=== PATIENT | female | born 1950 | race African-American/Black ===

== ENCOUNTER 2017-03-22 08:39 | Emergency (ER) | payer MEDICARE, OTHER, SELFPAY ==
--- NOTE | 2017-03-22 09:23 | RAD ---
CHEST PA AND LATERAL: History: 66-year-old female with cough. FINDINGS: Increased linear and interstitial markings are noted bilaterally having more the appearance of the ch ronic change. Old granuloma calcification of the right lower lobe. Atherosclerosis of the aorta with mild ectasia. No significant cardiomegaly. No confluent pneumonia. IMPRESSION: Chronic linear and interstitial changes bilaterally. Old granulomatous disease. No confluent pneumoni a or other acute process. POS: [facility]
== END 2017-03-22 09:36 | disposition home or self-care (01) ==
LOC: MADERS 08:39
DX: J18.9 Pneumonia, unspecified organism (principal); J06.9 Acute upper respiratory infection, unspecified; I10 Essential (primary) hypertension; Z85.038 Personal history of other malignant neoplasm of large intestine; Z79.82 Long term (current) use of aspirin; Z79.899 Other long term (current) drug therapy
CPT/HCPCS: 71020; 94640; J7620

== ENCOUNTER 2018-01-30 09:25 | Outpatient (CLI) | payer MEDICARE ==
--- NOTE | 2018-01-30 10:22 | RAD ---
RIGHT HIP TWO VIEWS: History: Fall one month ago with right hip pain. FINDINGS: There are very mild arthritic changes of the hip joint with some spurring along the femoral head and neck junction and acetabulum without joint space narrowing. I do not see any definite pubic rami frac ture on this examination. Bones appear slightly demineralized. IMPRESSION: 1. Arthritic changes of the right hip. 2. If the patient has significant pain, then consideration for evaluation with MRI to evaluate for so me type of subtle sacral fracture or stress type reaction or fracture may be helpful. POS: [facility]
--- NOTE | 2018-01-30 10:27 | RAD ---
TWO VIEWS OF THE LEFT HIP: INDICATION: Fall with left hip pain. COMPARISON: None. FINDINGS: No acute fracture or subluxation is present. There is a 9 mm calcific density overlying the left gre ater trochanter which can be seen with calcific tendinosis. There is mild degenerative arthrosis of the left hip as well as the left SI joint. IMPRESSION: 1. No definite acute osseous abnormality is evident. No displaced fracture is noted. 2. Mild degenerative arthrosis of the left hip. 3. A 9 mm calcific density overlying the left greater trochanter can be related to calcific tendinos is. POS: [facility]
--- NOTE | 2018-01-30 10:38 | RAD ---
THREE VIEWS LUMBAR SPINE: Date: 01-30-18 History: Right hip pain after a fall one month ago. FINDINGS: There are five non-rib bearing lumbar type vertebral bodies. Multilevel osteophytes are seen. The jania tebral body heights are within normal limits. There is slight narrowing of the L4-5 intervertebral di sc space. Mild facet degenerative changes are seen, predominately in the lower lumbar spine. No fract ure or subluxation is seen. Vascular calcifications are seen in the abdominal aorta as well as involv ing the iliac arteries. Curvilinear calcifications overlying the right lateral pelvis which also may be related to vascular type calcifications. Surgical clip overlies the left lower quadrant medially. IMPRESSION: 1. Degenerative changes of the lumbar spine without fracture visualized. 2. Vascular calcifications. POS: [facility]
== END 2018-01-30 09:26 | disposition home or self-care (01) ==
LOC: MADRAD 09:25
PROVIDERS: ATTEND Family Medicine
DX: M25.551 Pain in right hip (principal); M47.896 Other spondylosis, lumbar region; I70.0 Atherosclerosis of aorta; M16.12 Unilateral primary osteoarthritis, left hip; M16.11 Unilateral primary osteoarthritis, right hip; M25.852 Other specified joint disorders, left hip
CPT/HCPCS: 72100

== ENCOUNTER 2019-05-03 09:24 | Emergency (ER) | payer MEDICARE | END 2019-05-03 10:07 | disposition home or self-care (01) | LOC: MADERS 09:24 | DX: J02.9 Acute pharyngitis, unspecified (principal); H83.02 Labyrinthitis, left ear; I10 Essential (primary) hypertension; Z79.82 Long term (current) use of aspirin; Z79.899 Other long term (current) drug therapy | CPT/HCPCS: 99283 ==

== ENCOUNTER 2019-05-06 15:12 | Emergency (ER) | payer MEDICARE | END 2019-05-06 17:07 | disposition home or self-care (01) | LOC: MADERS 15:12 | DX: K59.00 Constipation, unspecified (principal); I10 Essential (primary) hypertension; Z79.899 Other long term (current) drug therapy; Z79.82 Long term (current) use of aspirin | CPT/HCPCS: 99283 ==